=== PATIENT | male | born 1975 | race Caucasian/White ===

== ENCOUNTER 2021-12-31 20:33 | Emergency (ER) | payer SELFPAY ==
[~2021-12-31] VITALS: Ht 170.2 cm; Wt 118.2 kg
[2021-12-31 21:15] VITALS: BP 135/85
[2021-12-31] MEDS ORDERED: CELEXA 20MG20 MG/TA1 PO (21:21)
[2021-12-31] MEDS ORDERED: BACTRIM DS TAB1 EACH PO (21:37)
== END 2021-12-31 21:52 | disposition home or self-care (01) ==
LOC: ED 20:33
DX: L60.0 Ingrowing nail (principal); F17.290 Nicotine dependence, other tobacco product, uncomplicated